=== PATIENT | female | born 1965 | race African-American/Black ===

== ENCOUNTER 2020-12-01 10:44 | Emergency (ER) | payer MEDICAID, OTHER ==
[~2020-12-01] VITALS: Ht 162.6 cm; Wt 70.0 kg
[2020-12-01 11:53] VITALS: BP 139/88
== END 2020-12-01 12:08 | disposition home or self-care (01) ==
LOC: ER 10:44
DX: M79.89 Other specified soft tissue disorders (principal); F17.290 Nicotine dependence, other tobacco product, uncomplicated; F12.10 Cannabis abuse, uncomplicated
CPT/HCPCS: 93971; 99284

== ENCOUNTER 2023-06-15 13:41 | Emergency (ER) | payer MEDICAID, OTHER ==
[~2023-06-15] VITALS: Ht 162.6 cm; Wt 66.0 kg
[~2023-06-15 13:41] MED LIST: IBUP-2029 PO
[2023-06-15 13:57] VITALS: O2SAT 98
[2023-06-15] MEDS ORDERED: IBUPROFEN 600MG TABLET PO ONE (14:15)
[2023-06-15] MEDS ORDERED: IBUP-2029 PO (15:45)
[2023-06-15 15:55] VITALS: BP 138/77; PULSE 99; RESP 18; TEMP 97.9
== END 2023-06-15 16:04 | disposition home or self-care (01) ==
LOC: ER 14:03
DX: M25.531 Pain in right wrist (principal); M25.532 Pain in left wrist; F12.10 Cannabis abuse, uncomplicated; Z98.890 Other specified postprocedural states
CPT/HCPCS: 73110; 99283; A4565